=== PATIENT | female | born 1985 | race Caucasian/White ===

== ENCOUNTER 2018-10-02 20:03 | Outpatient (CLI) | payer BC ==
[2018-10-02 20:50] LABS: BILIRUBIN,URINE NEGATIVE (NEGATIVE); GLUCOSE, URINE (UA) NEGATIVE (NEGATIVE); KETONES,URINE (UA) NEGATIVE (NEGATIVE); LEUKOCYTE ESTERASE, URINE NEGATIVE (NEGATIVE); NITRITE,URINE NEGATIVE (NEGATIVE); OCCULT BLOOD,URINE TRACE-INTA (NEGATIVE); PROTEIN,URINE 30 mg/dL (NEGATIVE); UROBILINOGEN,URINE 0.2 (NORMAL) E.U./dL (NORMAL)
[2018-10-02 20:56] LABS: CLARITY,URINE CLEAR (CLEAR)
[2018-10-02 21:00] LABS: CREATININE,URINE 20.6 mg/dL; PROTEIN/CREATININE RATIO,URINE 1.4 (<=0.2)
[2018-10-02] MEDS ORDERED: BETAMETHASONE 30 MG/5 ML VIAL IM ONE (21:02)
[2018-10-02 21:03] LABS: BASOPHILS % (AUTO) 0.3 %; EOSINOPHILS # (AUTO) 0.1 10^3/uL (0.0-0.7); EOSINOPHILS % (AUTO) 0.8 %; HGB - HEMOGLOBIN 13.2 g/dL (12.0-16.0); MEAN CORPUSCULAR HEMOGLOBIN 30.7 pg (27.0-31.0); MEAN CORPUSCULAR HGB CONC 34.9 g/dL (32.0-36.0); MEAN CORPUSCULAR VOLUME 87.9 fL (81.0-99.0); MEAN PLATELET VOLUME 12.3 fL (7.9-10.8); MONOCYTES % (AUTO) 8.2 %; NEUTROPHILS # (AUTO) 7.8 10^3/uL (1.5-6.6); NEUTROPHILS % (AUTO) 65.1 %; PLT - PLATELET COUNT 189 10^3/uL (130-450); WHITE BLOOD COUNT 11.9 x10^3/uL (4.8-10.8)
[2018-10-02 21:11] LABS: BACTERIA,URINE Rare /HPF (None Seen); RBC,URINE 0-5 /HPF (0-5); SQUAMOUS EPITHELIAL CELL,UR RARE Squamous (<= Few)
[2018-10-02 21:15] LABS: URIC ACID 6.4 mg/dL (2.6-7.2)
[2018-10-02] MEDS ORDERED: MAGNESIUM SULFATE IN WATER 20 GM/500 ML IV.SOLN IV ONE (21:15)
[2018-10-02] MEDS ORDERED: NIFEdipine 10 MG CAPSULE PO ONE ×2 (21:20→21:31)
--- NOTE | 2018-10-02 21:29 | HISTORY & PHYSICAL EXAMINATION ---
Admit History - Visit Reason Visit Reason: Other (Severe range blood pressures and vision change) - : 1 Parity: 0 Care: positive: Other ([facility]) Risk/History: positive: None Complications This : positive: Pre-eclampsia - Mother's Labs Mother's Blood Type: positive: Unknown Mother's RH: positive: Unknown GBS: positive: Other Rubella Status: positive: Unknown - Other Maternal History Other Maternal History: ID: Ms Kimble is a 33 yo at 28 weeks per pt report who presents with severe range blood pressures and vision change Ms Painter is followed by Dr. Paz at [facility] in [place] with a previously uncomplicated . She was visiting [facility] for an overnight trip with her . She woke with a puffy face and scratchy throat this am and took benadryl with some improvement. She then noted bright sparkling lights in her peripheral vision. She then went to [facility] and checked her blood pressures. They were as follows: 18:12 185/102 18:19 192/110 18:31 193 119 She presented to [facility]. BPs on arrival were: 20:14 169/99 20:55 184/101 20:18 153/95 173/99 Vision change has resolved. FOB notes that she had complained of spots in her vision over the last day or two when on her phone. She has complained on headaches over the last couple of weeks. Endorses FM. No LOF or VB. Does have a hx of anaphylactic reaction to unknown allergen while traveling in [facility]. Meds/Allgy - Home Medications Home Medications: Ambulatory Orders Medication Instructions Recorded Confirmed DULoxetine [Cymbalta] 30 mg PO DAILY 10/02/18 10/02/18 Pnv #35/Iron/FA #6/Dha [Prenate 1 each PO 10/02/18 Essential Softgel] Ranitidine HCl [Acid Control] 10/02/18 - Allergies Allergies/Adverse Reactions: Allergies Allergy/AdvReac Type Severity Reaction Status Date / Time clarithromycin [From Biaxin] Allergy Hives Verified 10/02/18 21:00 Review of Systems - Neurological Neurological: reports: Headache, Other (Vision change/resolved) - Other Findings Other Findings: As per HPI, otherwise remaining systems are negative Physical - Abdominal Exam Contraction Frequency (min/apart): none Contraction Intensity: positive: Other - Monitoring Heart Rate Baseline: 145 Strip Review: positive: Category I, Category II (AGA at 24 weeks) - Speculum Exam Speculum Exam Performed: positive: No Plan for Labor - Plan For Labor I expect patient to be DC'd or transferred within 96 hours.: Yes Plan for Labor: Preeclampsia at 24 weeks Meets severe criteria by BP, vision change, headache: -P:C 1.4 -PIH labs otherwise wn -Nifedipine 10 mg po x1 given until IV placed -Will then initiate protocol for management of severe range pressures with labetalol/hydralazine -Starting magnesium with 4g bolus followed with 2g infusion -Betamethasone 12 mg IM x1 now with plan to repeat in 24 hours -Collect GBS. Will hold PCN for GBS unknown at current FWB: -EFM AGA. 145 mod chris 10x10 accels, occ decels Extended periods without accels -BMZ as above -Magnesium for neuroprotecton -GBS collected PNC: -Obtaining records from [facility]/[place] -PNL unknown -Patient reports uncomplicated to date Plan to transfer to [facility] once stable PMH/PSH - Past Medical History : positive: Other (GERD/ related) Psych: positive: Depression - Past Surgical History Other past surgical history: Breast augmentation. Ankle fracture with plates intact Social History - Living Situation Living arrangement: Other (Lives in [place] with Works at [employer] No [employer]) Family History - Family History Family History Comment/Other: Mother: GDM Father: HTN PGM: HTN MGM: pancreatic cancer MGF: renal cancer No hx of renal dz
[2018-10-02] MEDS ORDERED: SODIUM CHLORIDE FLUSH 0.9% 10 ML SYRINGE ONE (21:41)
[2018-10-02] MEDS: MAGNESIUM SULFATE 2 GRAM 2 GM/50 ML BAG IV SCH ×2 (21:55→22:30)
[2018-10-02] MEDS ORDERED: LACTATED RINGERS 1,000 ML IV SCH (22:00)
[2018-10-02] MEDS ORDERED: MAGNESIUM SULFATE IN WATER 20 GM/500 ML IV.SOLN IV SCH (22:00)
[2018-10-02] MEDS ORDERED: LABETALOL 5 MG/1 ML 20 ML MDV IVP ONE (22:02)
[2018-10-02] MEDS ORDERED: LABETALOL 5 MG/1 ML 20 ML MDV IVP STA (22:11)
[2018-10-02] MEDS ORDERED: LABETALOL 5 MG/1 ML 20 ML MDV ONE (22:13)
--- NOTE | 2018-10-02 23:12 | PROVIDER PROGRESS NOTE ---
Subjective - Prog Note Date Prog Note Date: 10/02/18 Prog Note Time: 23:08 - Subjective Pt reports feeling: Improved (Blood pressures in normal to mild range. No MORRISSEY/vision change/RUQ at present. [facility] labs wnl other than P:C.) Objective - Vital Signs/Intake & Output Reviewed Vital Signs: Yes Intake & Output: Intake & Output 09/29/18 09/30/18 10/01/18 10/02/18 23:59 23:59 23:59 23:59 Intake Total 50 Balance 50 - Objective General Appearance: positive: No acute distress - Lab Results Fish Bones: 10/02/18 20:57 Other Labs: Lab Results x24hrs 10/02/18 10/02/18 10/02/18 Range/Units 20:57 20:57 20:57 WBC 11.9 H (4.8-10.8) x10^3/uL RBC 4.30 (4.20-5.40) 10^6/uL Hgb 13.2 (12.0-16.0) g/dL Hct 37.8 (37.0-47.0) % MCV 87.9 (81.0-99.0) fL MCH 30.7 (27.0-31.0) pg MCHC 34.9 (32.0-36.0) g/dL RDW 13.0 (12.0-15.0) % Plt Count 189 (130-450) 10^3/uL MPV 12.3 H (7.9-10.8) fL Neut # (Auto) 7.8 H (1.5-6.6) 10^3/uL Lymph # (Auto) 3.0 (1.5-3.5) 10^3/uL [place] # (Auto) 1.0 (0.0-1.0) 10^3/uL Eos # (Auto) 0.1 (0.0-0.7) 10^3/uL Baso # (Auto) 0.0 (0.0-0.1) 10^3/uL Absolute Nucleated RBC 0.00 x10^3/uL Nucleated RBC % 0.0 /100WBC Fibrinogen 401 (220-496) mg/dL Uric Acid 6.4 (2.6-7.2) mg/dL AST 30 (10-42) IU/L Lactate Dehydrogenase (91-225) IU/L Urine Color Urine Clarity (CLEAR) Urine pH (5.0-7.5) PH Ur Specific [place] (1.002-1.030) Urine Protein (NEGATIVE) mg/dL Urine Glucose (UA) (NEGATIVE) mg/dL Urine Ketones (NEGATIVE) mg/dL Urine Occult Blood (NEGATIVE) Urine Nitrite (NEGATIVE) Urine Bilirubin (NEGATIVE) Urine Urobilinogen (NORMAL) E.U./dL Ur Leukocyte Esterase (NEGATIVE) Urine RBC (0-5) /HPF Urine WBC (0-5) /HPF Ur Squamous Epith Cells (<= Few) Urine Bacteria (None Seen) /HPF Ur Microscopic Review Urine Culture Comments Urine Creatinine mg/dL Ur Total Protein Timed mg/dL Protein/Creatinin Ratio (<=0.2) 10/02/18 10/02/18 10/02/18 Range/Units 20:57 20:15 20:15 WBC (4.8-10.8) x10^3/uL RBC (4.20-5.40) 10^6/uL Hgb (12.0-16.0) g/dL Hct (37.0-47.0) % MCV (81.0-99.0) fL MCH (27.0-31.0) pg MCHC (32.0-36.0) g/dL RDW (12.0-15.0) % Plt Count (130-450) 10^3/uL MPV (7.9-10.8) fL Neut # (Auto) (1.5-6.6) 10^3/uL Lymph # (Auto) (1.5-3.5) 10^3/uL [place] # (Auto) (0.0-1.0) 10^3/uL Eos # (Auto) (0.0-0.7) 10^3/uL Baso # (Auto) (0.0-0.1) 10^3/uL Absolute Nucleated RBC x10^3/uL Nucleated RBC % /100WBC Fibrinogen (220-496) mg/dL Uric Acid (2.6-7.2) mg/dL AST (10-42) IU/L Lactate Dehydrogenase 172 (91-225) IU/L Urine Color LIGHT YELLOW Urine Clarity CLEAR (CLEAR) Urine pH 6.0 (5.0-7.5) PH Ur Specific [place] <=1.005 (1.002-1.030) Urine Protein 30 H (NEGATIVE) mg/dL Urine Glucose (UA) NEGATIVE (NEGATIVE) mg/dL Urine Ketones NEGATIVE (NEGATIVE) mg/dL Urine Occult Blood TRACE-INTA (NEGATIVE) Urine Nitrite NEGATIVE (NEGATIVE) Urine Bilirubin NEGATIVE (NEGATIVE) Urine Urobilinogen 0.2 (NORMAL) (NORMAL) E.U./dL Ur Leukocyte Esterase NEGATIVE (NEGATIVE) Urine RBC 0-5 (0-5) /HPF Urine WBC 0-3 (0-5) /HPF Ur Squamous Epith Cells RARE Squamous (<= Few) Urine Bacteria Rare (None Seen) /HPF Ur Microscopic Review INDICATED Urine Culture Comments NOT INDICATED Urine Creatinine 20.6 mg/dL Ur Total Protein Timed 28 mg/dL Protein/Creatinin Ratio 1.4 H (<=0.2) Assessment/Plan - Problem List (1) Pre-eclampsia Impression: 33 yo at 26 wga with pre-eclampsia with severe features by blood pressure/vision change criteria HTN: No consistently within normal/mld range -Received nfedipine 10 mg po x1 and labetalol 20 mg IV x1 -On Magnesium 4g bolus/2g infusion -P:C 1.4, remainder of PIH labs wnl FWB: EFM AGA -Betamethasone 12 mg M gen x1 -GBS collected -Magnesium for neuroprotection Accepted for transfer to [facility] by Dr. Jackson of [facility] Arranging for transport via [facility] Report given to tree surgeon helper Linda Forwarding records
[2018-10-02] MEDS ORDERED: diphenhydrAMINE 25 MG CAPSULE PO ONE (23:45)
[2018-10-03] MEDS ORDERED: NIFEdipine 10 MG CAPSULE PO ONE (00:30)
[2018-10-03 02:44] VITALS: BP 124/71
[2018-10-03] MEDS ORDERED: NIFEdipine 10 MG CAPSULE PO PRN (03:14)
== END 2018-10-03 00:35 | disposition short-term general hospital (02) ==
LOC: WFO 20:03 → FBP 20:06 → WFO 10-03 00:35
PROVIDERS: ATTEND Obstetrics & Gynecology
DX: O14.12 Severe pre-eclampsia, second trimester (principal); Z3A.26 26 weeks gestation of pregnancy; Z91.09 Other allergy status, other than to drugs and biological substances
CPT/HCPCS: 81001; 82570; 83615; 84156; 84450; 84550; 85025; 85384; 87081; 96365; 96372; 96376; 99214; A9270; J7120; 81003; 82565; 84460; 87086